=== PATIENT | female | born 2000 | race Caucasian/White ===

== ENCOUNTER → 2021-06-01 15:01 | Outpatient (BNVA) | payer MEDICAID, SELFPAY | PROVIDERS: Family Provider Nurse Practitioner Family; PCP Family Medicine; Referring Provider Nurse Practitioner Family; Visit Provider Podiatrist Foot & Ankle Surgery | DX: G71.11 Myotonic muscular dystrophy (principal); M79.89 Other specified soft tissue disorders | CPT/HCPCS: 73630 ==